=== PATIENT | female | born 1955 | race African-American/Black ===

== ENCOUNTER 2016-12-08 12:18 | Emergency (ER) | payer OTHER ==
[2016-12-08 12:33] VITALS: BP 153/92
--- NOTE | 2016-12-08 12:38 | ER Document Report ---
ED Medical Screen (RME) - General Chief Complaint: Post Surgical Bleeding Stated Complaint: SHOULDER PAIN Notes: 61 yo female c/o post op bleeding from left shoulder. rotator cuff repair 11/26 in [place]. no bleeding until getting out of shower today. pain has increased with bleeding. no bleeding presently. TRAVEL OUTSIDE OF THE [place] IN LAST 30 DAYS: No - Related Data Allergies/Adverse Reactions: tramadol [Tramadol] Allergy (Intermediate, Verified 01/23/15 08:54) DIZZINESS, ALTERATION IN MENTAL STATUS acetaminophen [From Darvocet-N 100] Allergy (Mild, Verified 10/21/11 11:01) rash/itching aspirin [Aspirin] Allergy (Mild, Verified 10/21/11 11:01) rash/itvhing propoxyphene napsylate [From Darvocet-N 100] Allergy (Mild, Verified 10/21/11 11 :01) rash/itching Past Medical History - Past Medical History Cardiac Medical History: Reports: Hx Coronary Artery Disease, Hx Heart Attack - Per Patient had a silent heart attack; 2013, Hx Hypertension Pulmonary Medical History: Reports: Hx Asthma, Hx Bronchitis Denies: Hx COPD, Hx Pneumonia Neurological Medical History: Denies: Hx Seizures Musculoskeltal Medical History: Reports Hx Arthritis, Reports Hx Musculoskeletal Trauma Traumatic Medical History: Reports: Hx Fractures Past Surgical History: Reports: Hx Adenoidectomy, Hx Hysterectomy, Hx Orthopedic Surgery - bilateral rotator cuff repairs right 2013 left 2 days ago 01 27 15, Hx Tonsillectomy - Immunizations Immunizations up to date: Yes Hx Diphtheria, Pertussis, Tetanus Vaccination: Yes
== END 2016-12-08 14:23 | disposition left against medical advice (07) ==
LOC: ER 12:18
DX: L76.22 Postprocedural hemorrhage of skin and subcutaneous tissue following other procedure (principal); Y83.8 Other surgical procedures as the cause of abnormal reaction of the patient, or of later complication, without mention of misadventure at the time of the procedure; I25.10 Atherosclerotic heart disease of native coronary artery without angina pectoris; I25.2 Old myocardial infarction; I10 Essential (primary) hypertension; J45.909 Unspecified asthma, uncomplicated; Z88.5 Allergy status to narcotic agent; Z88.6 Allergy status to analgesic agent; Z53.20 Procedure and treatment not carried out because of patient's decision for unspecified reasons
CPT/HCPCS: 99281

== ENCOUNTER 2016-12-19 15:11 | Emergency (ER) | payer OTHER ==
--- NOTE | 2016-12-19 16:15 | ER Document Report ---
ED Medical Screen (RME) - General Chief Complaint: Shoulder Pain Stated Complaint: POST OP SHOULDER PAIN TRAVEL OUTSIDE OF THE [place] IN LAST 30 DAYS: No - HPI Notes: 12/19/16 16:14 Patient with left shoulder surgery performed in [facility] with complications of infection wound dehiscence with wound VAC states that the wound open up again yesterday pain to the ER today for further evaluation patient states fevers and chills the wounds covered with 4 x 4 gauze and OpSite there is no bleeding or blushing or drainage of the current dressing. Patient looks to be in no obvious distress - Related Data Allergies/Adverse Reactions: tramadol [Tramadol] Allergy (Intermediate, Verified 12/19/16 15:17) DIZZINESS, ALTERATION IN MENTAL STATUS acetaminophen [From Darvocet-N 100] Allergy (Mild, Verified 12/19/16 15:17) rash/itching aspirin [Aspirin] Allergy (Mild, Verified 12/19/16 15:17) rash/itvhing propoxyphene napsylate [From Darvocet-N 100] Allergy (Mild, Verified 12/19/16 15 :17) rash/itching Past Medical History - Past Medical History Cardiac Medical History: Reports: Hx Coronary Artery Disease, Hx Heart Attack - Per Patient had a silent heart attack; 2012, Hx Hypertension Pulmonary Medical History: Reports: Hx Asthma, Hx Bronchitis Denies: Hx COPD, Hx Pneumonia Neurological Medical History: Denies: Hx Seizures Renal/ Medical History: Denies: Hx Peritoneal Dialysis Musculoskeltal Medical History: Reports Hx Arthritis, Reports Hx Musculoskeletal Trauma Traumatic Medical History: Reports: Hx Fractures Past Surgical History: Reports: Hx Adenoidectomy, Hx Hysterectomy, Hx Orthopedic Surgery - bilateral rotator cuff repairs right 2013 left 2 days ago 5 11 15, Hx Tonsillectomy - Immunizations Immunizations up to date: Yes Hx Diphtheria, Pertussis, Tetanus Vaccination: Yes Review of Systems - Review of Systems Musculoskeletal: Other - Surgical wound complication Physical Exam - Vital signs Vitals: Temp Pulse Resp BP Pulse Ox 98.8 F 84 20 141/86 H 99 12/19/16 15:18 12/19/16 15:18 12/19/16 15:18 12/19/16 15:18 12/19/16 15:18 - Cardiovascular Rhythm: Regular Heart sounds: Normal auscultation Course - Vital Signs Vital signs: Temp Pulse Resp BP Pulse Ox 98.8 F 84 20 141/86 H 99 12/19/16 15:18 12/19/16 15:18 12/19/16 15:18 12/19/16 15:18 12/19/16 15:18
[2016-12-19 17:14] LABS: ANION GAP 13 (5-19); BLOOD UREA NITROGEN 10 mg/dL (7-20); CALCIUM 9.7 mg/dL (8.4-10.2); CARBON DIOXIDE 28 mmol/L (22-30); CHLORIDE 104 mmol/L (98-107); CREATININE RESULT 0.54 mg/dL (0.52-1.25); GLUCOSE 87 mg/dL (75-110); POTASSIUM 4.3 mmol/L (3.6-5.0); SODIUM 144.6 mmol/L (137-145)
[2016-12-19 17:54] LABS: ABSOLUTE EOSINOPHILS # (AUTO) 0.1 10^3/uL (0.0-0.6); ABSOLUTE MONOCYTES (AUTO) 0.8 10^3/uL (0.1-1.4); ABSOLUTE NEUT (AUTO) 1.8 10^3/uL (1.7-8.2); BASOPHILS % (AUTO) 0.9 % (0-2); HEMATOCRIT 30.4 % (36.0-47.0); HGB HCT DIFFERENCE -0.4; LYMPHOCYTES % (AUTO) 41.7 % (13-45); MEAN CORPUSCULAR HEMOGLOBIN 27.6 pg (27.0-33.4); MEAN CORPUSCULAR VOLUME 84 fl (80-97); MONOCYTES % (AUTO) 16.5 % (3-13); RED BLOOD COUNT 3.64 10^6/uL (3.72-5.28); RED CELL DISTRIBUTION WIDTH 14.2 % (11.5-14.0); SEGMENTED NEUTROPHILS % (AUTO) 37.9 % (42-78); WHITE BLOOD COUNT 4.9 10^3/uL (4.0-10.5)
--- NOTE | 2016-12-19 18:53 | ER Document Report ---
ED General - General Chief Complaint: Shoulder Pain Stated Complaint: POST OP SHOULDER PAIN Notes: Patient is a 61-year-old female with recent rotator cuff repair to the left shoulder with a common location of a wound dehiscence status post wound VAC placement and removal who presents with concerns of a small opening of the wound. States the wound had been completely closed but yesterday a small portion and central areas of wound opened up and serous fluid has been draining since that time. States her pain is unchanged since the onset of this drainage. She is already taking doxycycline and clindamycin for concern of possible infection to the site. Nothing seems to improve or worsen her symptoms. She has not contacted her surgeon regarding this recurrence of the wound opening. She denies any fever or constitutional symptoms. TRAVEL OUTSIDE OF THE [place] IN LAST 30 DAYS: No - Related Data Allergies/Adverse Reactions: tramadol [Tramadol] Allergy (Intermediate, Verified 12/19/16 15:17) DIZZINESS, ALTERATION IN MENTAL STATUS acetaminophen [From Darvocet-N 100] Allergy (Mild, Verified 12/19/16 15:17) rash/itching aspirin [Aspirin] Allergy (Mild, Verified 12/19/16 15:17) rash/itvhing propoxyphene napsylate [From Darvocet-N 100] Allergy (Mild, Verified 12/19/16 15 :17) rash/itching Past Medical History - General Information source: Patient - Social History Smoking Status: Never Smoker Frequency of alcohol use: None Drug Abuse: None Lives with: Spouse/Significant other Family History: Reviewed & Not Pertinent Patient has suicidal ideation: No Patient has homicidal ideation: No - Past Medical History Cardiac Medical History: Reports: Hx Coronary Artery Disease, Hx Heart Attack - Per Patient had a silent heart attack; 2013, Hx Hypertension Pulmonary Medical History: Reports: Hx Asthma, Hx Bronchitis Denies: Hx COPD, Hx Pneumonia Neurological Medical History: Denies: Hx Seizures Renal/ Medical History: Denies: Hx Peritoneal Dialysis Musculoskeltal Medical History: Reports Hx Arthritis, Reports Hx Musculoskeletal Trauma Traumatic Medical History: Reports: Hx Fractures Past Surgical History: Reports: Hx Adenoidectomy, Hx Hysterectomy, Hx Orthopedic Surgery - bilateral rotator cuff repairs right 2013 left 2 days ago 5 11 15, Hx Tonsillectomy - Immunizations Immunizations up to date: Yes Hx Diphtheria, Pertussis, Tetanus Vaccination: Yes Hx Pneumococcal Vaccination: 06/19/12 Review of Systems - Review of Systems Notes: Constitutional: Negative for fever. HENT: Negative for sore throat. Eyes: Negative for visual changes. Cardiovascular: Negative for chest pain. Respiratory: Negative for shortness of breath. Gastrointestinal: Negative for abdominal pain, vomiting or diarrhea. Genitourinary: Negative for dysuria. Musculoskeletal: Negative for back pain. Skin: Positive for wound drainage Neurological: Negative for headaches, weakness or numbness. 10 point ROS negative except as marked above and in HPI. Physical Exam - Vital signs Vitals: Temp Pulse Resp BP Pulse Ox 98.8 F 84 20 141/86 H 99 12/19/16 15:18 12/19/16 15:18 12/19/16 15:18 12/19/16 15:18 12/19/16 15:18 Interpretation: Hypertensive Notes: PHYSICAL EXAMINATION: GENERAL: Well-appearing, well-nourished and in no acute distress. HEAD: Atraumatic, normocephalic. EYES: Pupils equal round and reactive to light, extraocular movements intact, sclera anicteric, conjunctiva are normal. ENT: nares patent, oropharynx clear without exudates. Moist mucous membranes. NECK: Normal range of motion, supple without lymphadenopathy LUNGS: Breath sounds clear to auscultation bilaterally and equal. No wheezes rales or rhonchi. HEART: Regular rate and rhythm without murmurs ABDOMEN: Soft, nontender, normoactive bowel sounds. No guarding, no rebound. No masses appreciated. EXTREMITIES: Normal range of motion, no pitting or edema. No cyanosis. NEUROLOGICAL: No focal neurological deficits. Moves all extremities spontaneously and on command. PSYCH: Normal mood, normal affect. SKIN: Warm, Dry, normal turgor, there is a half centimeter opening, very superficial to the prior surgical site of the left shoulder. Serous fluid does occasionally drain from this area although no spreading erythema or purulent drainage. Course - Re-evaluation Re-evalutation: 12/19/16 18:53 Patient presents with a very small opening to the left shoulder from a prior surgery. There is serous fluid draining but no evidence of purulent expression or surrounding cellulitis. She is already on doxycycline and clindamycin. Vitals within normal limits. No leukocytosis. I've encouraged him to contact the primary surgeon regarding today's concerns and have explained signs and symptoms to watch for.At this time will discharge with return precautions and follow-up recommendations. Verbal discharge instructions given a the bedside and opportunity for questions given. Medication warnings reviewed. Patient is in agreement with this plan and has verbalized understanding of return precautions and the need for primary care follow-up in the next 24-72 hours. - Vital Signs Vital signs: Temp Pulse Resp BP Pulse Ox 97.8 F 78 18 139/87 H 100 12/20/16 00:11 12/20/16 00:11 12/20/16 00:11 12/20/16 00:11 12/20/16 00:11 - Laboratory Result Diagrams: 12/19/16 17:40 12/19/16 16:20 Laboratory results interpreted by me: 12/19/16 17:40 RBC 3.64 L Hgb 10.0 L Hct 30.4 L RDW 14.2 H Seg Neutrophils % 37.9 L Monocytes % 16.5 H Discharge - Discharge Clinical Impression: Wound, open Shoulder pain, left Qualifiers: Chronicity: acute Qualified Code(s): M25.512 - Pain in left shoulder Condition: Good Disposition: HOME, SELF-CARE Additional Instructions: The wound does not appear infected. The clear drainage you are seeing is normal. Please follow closely with her surgeon and let him know that the wound has had a very small partial reopening. Return immediately if you have worsening pain, fever greater than 100.4F, vomiting, spreading redness from the area, or any other symptoms that are worrisome to you.
[2016-12-20 00:16] VITALS: BP 139/87
== END 2016-12-19 19:30 | disposition home or self-care (01) ==
LOC: ER 15:11
DX: T81.30XA Disruption of wound, unspecified, initial encounter (principal); M25.512 Pain in left shoulder; Z79.899 Other long term (current) drug therapy
CPT/HCPCS: 36415; 80048; 85025; 87040; 99283

== ENCOUNTER → 2017-11-19 | Outpatient (CLI) | payer OTHER ==
--- NOTE | 2017-11-20 15:42 | RADIOLOGY REPORT (SQ) ---
EXAM DESCRIPTION: MRI LT UPPER JOINT WITHOUT COMPLETED DATE/TIME: 11/19/2017 12:49 pm REASON FOR STUDY: COMPLETE TEAR OF LEFT ROTATOR CUFF M75.122 COMPLETE ROTATR-CUFF TEAR/RUPTR OF LEF T SHOULDER, NO COMPARISON: 01/30/2016 TECHNIQUE: Left shoulder images acquired and stored on PACS. Multiplanar imaging to include fat sens itive sequences such as T1, water sensitive sequences such as FST2/STIR, cartilage sensitive sequence s such as FSPD/gradient-echo sequences. LIMITATIONS: Motion. Susceptibility artifact. FINDINGS: BONE MARROW AND CORTEX: No worrisome bone lesions or marrow replacement. No occult fractur es. JOINT OR BURSAL EFFUSION: Small amount of fluid in the subacromial bursa. GLENO-HUMERAL ARTICULATION: Superior migration of the humeral head. Cartilage loss. Subchondral cys t formation in the glenoid. ACROMION AND AC JOINT: Prior acromioplasty. Possibly Flyod procedure. ROTATOR CUFF AND INTERVAL: Atrophy of the supraspinatus and infraspinatus. Very little normal cuff t issue identified in the supraspinatus. Full-thickness tear of the infraspinatus. Some of the [employer] ior fibers probably intact. Teres minor intact. subscapularis attenuated but appears intact. Scar tissue in the rotator interval. LABRUM AND BICEPS LABRAL COMPLEX: A normal biceps labral complex is not visualized. Suspected prio r biceps tenodesis. REMAINDER OF LABRUM AND IGHL : Grossly intact. PERIARTICULAR AND ADJACENT SOFT TISSUES: No masses or abnormal nodes. OTHER: No other significant finding. IMPRESSION: 1. Technical limitations from motion and metal artifact. Extensive postsurgical changes. Recurrent t ear supraspinatus. Partial tear of the infraspinatus. 2. Glenohumeral joint arthropathy. TECHNICAL DOCUMENTATION: JOB ID: [id number] [employer]- All Rights Reserved Reading location - IP/workstation name: [email or web address]
== END ==
LOC: RAD 11:55
PROVIDERS: ATTEND Orthopaedic Surgery
DX: M75.122 Complete rotator cuff tear or rupture of left shoulder, not specified as traumatic (principal)

== ENCOUNTER 2018-02-02 10:27 | Day surgery (SDC) | payer OTHER ==
[~2018-02-02 10:27] MED LIST: KETOROLAC TROMETHAMINE 0.45% 4 DROP/0.4 ML DROPERETTE OD PRN
[2018-02-02] MEDS: TROPICAMIDE 1% OPH SOLN 3 ML OD PRN ×3 (10:51→11:22)
[2018-02-02] MEDS: CYCLOPENTOLATE 0.2%/PHENYLEPHRINE 1% OPH SOLN 2 ML OD PRN ×3 (10:51→11:22)
[2018-02-02] MEDS: BESIFLOXACIN HCL 0.6% OPH SUSP 5 ML BOTTLE OD PRN ×3 (10:52→12:02)
[2018-02-02] MEDS: TETRACAINE HCL 0.5% OPH SOLN 2 ML OD PRN ×3 (10:53→11:38)
[2018-02-02] MEDS ORDERED: LIDOCAINE 1% INJ-PF (10 MG/ML) 30 ML SDV ONE (11:09)
[2018-02-02] MEDS ORDERED: EPINEPHRINE INJ/PF 1 MG/1 ML AMPULE ONE (11:09)
[2018-02-02] MEDS ORDERED: CHONDR SU A NA/HYALUR INTRAOC KIT (SURGICARE) ONE (11:09)
[2018-02-02] MEDS ORDERED: MIDAZOLAM 2 MG/2 ML INJ ONE ×2 (11:15→11:53)
[2018-02-02] MEDS ORDERED: FENTANYL CITRATE INJ/PF 100 MCG/2 ML AMPUL ONE (11:15)
[2018-02-02] MEDS ORDERED: ONDANSETRON HCL INJ/PF 4 MG/2 ML SDV ONE (11:15)
--- NOTE | 2018-02-02 19:00 | [facility] OPERATIVE REPORT E ---
[facility] Operative Report NAME: EARLINE LUNA AGE: 62Y DATE OF SURGERY: 02/02/2018 ROOM: PREOPERATIVE DIAGNOSIS: CATARACT, RIGHT EYE. POSTOPERATIVE DIAGNOSIS: CATARACT, RIGHT EYE. OPERATION: Cataract extraction with insertion of an IOL of the right eye. SURGEON: ROGER LOGAN M.D. ANESTHESIA: Topical. PROCEDURE: After obtaining appropriate consent, the patient's right eye was prepped and draped in sterile fashion as well as the surgeon in a sterile manner and cataract surgery was started. First a paracentesis blade was used to make a side-port incision. Viscoelastic was used to inflate the anterior chamber. Next a 2.4 mm incision was made with a 2.4 mm blade, clear corneal temporally. A continuous capsulorrhexis was made using a cystotome and Utrata forceps. Following this hydrodissection was carried out to make the lens fully loose and mobile and it was rotated 90 degrees. Following this, a rrdruv-xdo-azdwpio technique was used to phacoemulsify the lens with a CDE of 5.35. The remaining cortex was removed with irrigation/aspiration. Provisc was instilled into the capsular bag to inflate the bag. A SN60WF, 20.5 diopter lens was placed. The remaining viscoelastic material was removed with irrigation/aspiration. Following this, the incision was found to be watertight. Besivance was instilled into the eye and a protective shield was placed over the eye. The patient returned to the postoperative recovery in stable condition. DICTATING PHYSICIAN: ROGER LOGAN M.D. [id number] PHY#: [id number] ID: [id number] JOB#: [id number] ACCT: [id number] cc:ROGER LOGAN M.D. >
--- NOTE | 2018-02-02 19:00 | DISCHARGE SUMMARY E ---
Discharge Summary NAME: EARLINE LUNA : 1955 AGE: 62Y ADMITTED: 02/02/2018 DISCHARGED: 02/02/2018 HOSPITAL COURSE: This is a [id number]oy-old female who underwent cataract extraction of the right eye. DIAGNOSIS: Cataract, right eye. She underwent surgery because she was having difficulty reading road signs and glare at night was bothersome to her. DISCHARGE INSTRUCTIONS: She is to be on a regular diet. No bending at her waist, no heavy lifting. She is to use Besivance, Ilevro, and Durezol at 3:00 p.m. and 8:00 p.m., and sleep with a rigid shield. I will see her for her 1 day postoperative tomorrow. DICTATING PHYSICIAN: ROGER LOGAN M.D. [id number] [id number] PHY#: [id number] ID: [id number] JOB#: [id number] ACCT: [id number] cc:ROGER LOGAN M.D. >
== END 2018-02-02 12:42 | disposition home or self-care (01) ==
LOC: SC 10:27
PROVIDERS: ATTEND Internal Medicine
DX: H25.813 Combined forms of age-related cataract, bilateral (principal); H16.223 Keratoconjunctivitis sicca, not specified as Sjogren's, bilateral; H01.002 Unspecified blepharitis right lower eyelid; H01.005 Unspecified blepharitis left lower eyelid; J44.9 Chronic obstructive pulmonary disease, unspecified; I10 Essential (primary) hypertension; F17.210 Nicotine dependence, cigarettes, uncomplicated; M19.90 Unspecified osteoarthritis, unspecified site; M79.7 Fibromyalgia; K21.9 Gastro-esophageal reflux disease without esophagitis; Z79.1 Long term (current) use of non-steroidal anti-inflammatories (NSAID); I25.2 Old myocardial infarction
CPT/HCPCS: 66984; V2632; J2250; J3490 ×2; J0171; J3010; J2405; 142

== ENCOUNTER 2018-02-23 10:36 | Day surgery (SDC) | payer OTHER ==
[~2018-02-23 10:36] MED LIST changes: +CHONDR SU A NA/HYALUR INTRAOC KIT (SURGICARE) ONE; +EPINEPHRINE INJ/PF 1 MG/1 ML AMPULE ONE; -KETOROLAC TROMETHAMINE 0.45% 4 DROP/0.4 ML DROPERETTE OD PRN; +KETOROLAC TROMETHAMINE 0.45% 4 DROP/0.4 ML DROPERETTE OS PRN; +LIDOCAINE 1% INJ-PF (10 MG/ML) 30 ML SDV ONE
[2018-02-23] MEDS: CYCLOPENTOLATE 0.2%/PHENYLEPHRINE 1% OPH SOLN 2 ML OS PRN ×3 (11:25→11:50)
[2018-02-23] MEDS: TROPICAMIDE 1% OPH SOLN 3 ML OS PRN ×3 (11:25→11:50)
[2018-02-23] MEDS: TETRACAINE HCL 0.5% OPH SOLN 2 ML OS PRN ×2 (11:25→12:00)
[2018-02-23] MEDS: BESIFLOXACIN HCL 0.6% OPH SUSP 5 ML BOTTLE OS PRN ×3 (11:26→12:32)
[2018-02-23] MEDS ORDERED: MIDAZOLAM 2 MG/2 ML INJ ONE (12:19)
[2018-02-23] MEDS ORDERED: FENTANYL CITRATE INJ/PF 100 MCG/2 ML AMPUL ONE (12:19)
--- NOTE | 2018-02-23 20:00 | [facility] DISCHARGE SUMMARY E ---
[facility] Discharge Summary NAME: EARLINE LUNA AGE: 62Y ADMITTED: 02/23/2018 DISCHARGED: 02/23/2018 HOSPITAL COURSE: This is a 62-year-old female who underwent cataract extraction of the left eye. DIAGNOSIS: CATARACT, LEFT EYE. She underwent surgery because she was having difficult with increased glare from headlights making it difficult to drive at night. DISCHARGE INSTRUCTIONS: She can be on a regular diet. No bending at her waist, no heavy lifting. She should use her Besivance, Ilevro, and Durezol at 3 p.m. and 8 p.m. and sleep with a rigid shield. I will see her for her 1 day postoperative tomorrow. DICTATING PHYSICIAN: ROGER LOGAN M.D. 5020M [id number] PHY#: [id number] ID: [id number] JOB#: [id number] ACCT: [id number] cc:ROGER LOGAN M.D. >
--- NOTE | 2018-02-23 20:00 | [facility] OPERATIVE REPORT E ---
[facility] Operative Report NAME: EARLINE LUNA AGE: 62Y DATE OF SURGERY: 02/23/2018 ROOM: PREOPERATIVE DIAGNOSIS: CATARACT, LEFT EYE. POSTOPERATIVE DIAGNOSIS: CATARACT, LEFT EYE. OPERATION: Cataract extraction with insertion of an IOL of the left eye. SURGEON: ROGER LOGAN M.D. ANESTHESIA: Topical. PROCEDURE: After obtaining appropriate consent, the patient's left eye was prepped and draped in sterile fashion as well as the surgeon in a sterile manner and cataract surgery was started. First a paracentesis blade was used to make a side-port incision. Viscoelastic was used to inflate the anterior chamber. Next a 2.4 mm incision was made with a 2.4 mm blade, clear corneal temporally. A continuous capsulorrhexis was made using a cystotome and Utrata forceps. Following this hydrodissection was carried out to make the lens fully loose and mobile and it was rotated 90 degrees. Following this, a uospqm-xxt-vsyhrgk technique was used to phacoemulsify the lens with a CDE of 5.16. The remaining cortex was removed with irrigation/aspiration. Provisc was instilled into the capsular bag to inflate the bag. A SN60WF, 20.5 diopter lens was placed. The remaining viscoelastic material was removed with irrigation/aspiration. Following this, the incision was found to be watertight. Besivance was instilled into the eye and a protective shield was placed over the eye. The patient returned to the postoperative recovery in stable condition. DICTATING PHYSICIAN: ROGER LOGAN M.D. 5020M [id number] PHY#: [id number] ID: [id number] JOB#: [id number] ACCT: [id number] cc:ROGER LOGAN M.D. >
== END 2018-02-23 13:14 | disposition home or self-care (01) ==
LOC: SC 10:36
PROVIDERS: ATTEND Internal Medicine
DX: H25.812 Combined forms of age-related cataract, left eye (principal); Z96.1 Presence of intraocular lens; J45.909 Unspecified asthma, uncomplicated; I10 Essential (primary) hypertension; M19.90 Unspecified osteoarthritis, unspecified site; K21.9 Gastro-esophageal reflux disease without esophagitis; M79.7 Fibromyalgia; I25.2 Old myocardial infarction; Z79.899 Other long term (current) drug therapy
CPT/HCPCS: 66984; V2632; J2250; J3490 ×2; J0171; J3010; 142